=== PATIENT | female | born 1960 | race Caucasian/White ===

== ENCOUNTER 2020-06-09 14:36 | Emergency (ER) | payer OTHER ==
[~2020-06-09] VITALS: Ht 152.4 cm; Wt 71.2 kg
[2020-06-09 14:49] VITALS: BP 134/65
--- NOTE | 2020-06-09 15:25 | NUR ---
US TECH AT BEDSIDE
--- NOTE | 2020-06-09 17:01 | NUR ---
Patient discharged to home in stable condition. Written and verbal after care instructions given. Patient verbalizes understanding of instruction.
== END 2020-06-09 17:02 | disposition home or self-care (01) ==
LOC: ER 14:46
DX: R60.0 Localized edema (principal); F41.9 Anxiety disorder, unspecified; E78.5 Hyperlipidemia, unspecified; Z90.89 Acquired absence of other organs
CPT/HCPCS: 93971-TC

== ENCOUNTER 2020-08-09 12:29 | Emergency (ER) | payer OTHER ==
[~2020-08-09] VITALS: Ht 152.4 cm; Wt 68.5 kg
[2020-08-09 12:50] VITALS: BP 146/89
--- NOTE | 2020-08-09 15:56 | NUR ---
Patient discharged to home in stable condition. Written and verbal after care instructions given. Patient verbalizes understanding of instruction.
--- NOTE | 2020-08-10 22:41 | NUR ---
LAB CALLED REGARDING POSITIVE COVID RESULT
== END 2020-08-09 15:56 | disposition home or self-care (01) ==
LOC: ER 12:34
DX: U07.1 COVID-19 (principal); J12.89 Other viral pneumonia; Z88.6 Allergy status to analgesic agent
CPT/HCPCS: 71045; 99284; C9803; U0003

== ENCOUNTER 2022-10-21 13:45 | Emergency (ER) | payer OTHER ==
[~2022-10-21] VITALS: Ht 152.4 cm; Wt 73.5 kg
[2022-10-21] MEDS ORDERED: IV NS 0.9% 1,000 ML BAG IV ONE (14:00)
--- NOTE | 2022-10-21 14:00 | NUR ---
BIBFAMILY C/O LIGHT HEADEDNESS X 2 WEEKS, RL=133/70 30 MINUTES AGO. AMBULATORY, PLACED IN BED, AAOX4, BREATHING EVEN SATURATING AT 98%RA
--- NOTE | 2022-10-21 14:08 | NUR ---
BLOOD DRAWN AND SWAB FOR COVID19 SENT TO LAB
--- NOTE | 2022-10-21 14:24 | NUR ---
AT BEDSIDE FOR EVAL.
[2022-10-21 14:32] LABS: BASOPHILS % (AUTO) 0.7 % (0.0-2.0); EOSINOPHILS % (AUTO) 1.6 % (0.0-6.0); HEMATOCRIT 39 % (33-45); HEMOGLOBIN 12.7 g/dL (11.5-14.8); MEAN CORPUSCULAR HGB CONC 33 g/dl (31.0-36.0); MEAN CORPUSCULAR VOLUME 93 fL (82-100); MONOCYTES # (AUTO) 0.5 K/uL (0.1-1.30); MONOCYTES % (AUTO) 7.7 % (2.0-12.0); NEUTROPHILS # (AUTO) 3.6 K/uL (1.8-8.9); PLATELET COUNT (AUTO) 261 K/uL (150-450); RED BLOOD CELL COUNT(AUTO) 4.18 MIL/uL (4.0-5.2); WHITE BLOOD COUNT (AUTO) 6.2 K/uL (4.3-11.0)
--- NOTE | 2022-10-21 14:40 | NUR ---
PATIENT TAKEN TO CT VIA DEXTER
[2022-10-21 16:23] LABS: ALANINE AMINOTRANSFERASE 123 U/L (12-78); ALBUMIN 4.1 g/dL (3.4-5.0); ALKALINE PHOSPHATASE 178 U/L (46-116); ASPARTATE AMINOTRANSFERASE 47 U/L (15-37); BILIRUBIN,DIRECT 0.1 mg/dL (0.0-0.2); BILIRUBIN,TOTAL 0.4 mg/dL (0.2-1.0); CARBON DIOXIDE 28 mmol/L (21-32); CHLORIDE 105 mmol/L (98-107); CREATININE 0.7 mg/dL (0.6-1.3); GLUCOSE 114 mg/dL (74-106); POTASSIUM 4.3 mmol/L (3.5-5.1); SODIUM SERUM 139 mmol/L (136-145); TOTAL PROTEIN, SERUM 8.5 g/dL (6.4-8.2); UREA NITROGEN, BLOOD 18 mg/dL (7-18)
[2022-10-21] MEDS ORDERED: IBUP-1957 PO (17:16)
--- NOTE | 2022-10-21 17:30 | NUR ---
IV removed. Catheter intact and site benign. Pressure and 4x4 applied to site. No bleeding noted.Patient discharged to home in stable condition. Written and verbal after care instructions given. Patient verbalizes understanding of instruction.
[2022-10-21 18:17] VITALS: BP 135/70
== END 2022-10-21 17:30 | disposition home or self-care (01) ==
LOC: ER 13:52
DX: I10 Essential (primary) hypertension (principal); F41.9 Anxiety disorder, unspecified; R51.9 Headache, unspecified; Z79.899 Other long term (current) drug therapy; Z88.6 Allergy status to analgesic agent
CPT/HCPCS: 99285; 96360; 70450; 87426; 93005; 85025; 80048; 80076; 36415; 84484; 82962; J7030; C9803

== ENCOUNTER 2023-05-18 17:35 | Emergency (ER) | payer MEDICAID, OTHER ==
[~2023-05-18] VITALS: Ht 152.4 cm; Wt 49.9 kg
[~2023-05-18 17:35] MED LIST: IBUP-1957 PO
[2023-05-18] MEDS ORDERED: ALPRAZOLAM 0.5 MG TABLET PO ONE (20:00)
[2023-05-18] MEDS ORDERED: ALPRAZOLAM 0.5 MG TABLET ONE (20:09)
[2023-05-18] MEDS ORDERED: ALPR0.5T PO (20:48)
[2023-05-18 21:04] VITALS: BP 164/86; TEMP 98.7; O2SAT 100
== END 2023-05-18 21:04 | disposition home or self-care (01) ==
LOC: ER 17:51
DX: F41.9 Anxiety disorder, unspecified (principal); Z88.6 Allergy status to analgesic agent

== ENCOUNTER 2023-05-19 12:53 | Emergency (ER) | payer OTHER ==
[~2023-05-19] VITALS: Ht 152.4 cm; Wt 63.5 kg
[~2023-05-19 12:53] MED LIST changes: +ALPR0.5T PO
[2023-05-19 12:59] VITALS: BP 143/98; TEMP 98.4; O2SAT 100
[2023-05-19] MEDS ORDERED: ALPRAZOLAM 0.5 MG TABLET ONE (13:12)
[2023-05-19] MEDS ORDERED: ALPRAZOLAM 0.5 MG TABLET PO ONE (13:30)
== END 2023-05-19 13:16 | disposition home or self-care (01) ==
LOC: ER 12:56
DX: F41.9 Anxiety disorder, unspecified (principal); E78.00 Pure hypercholesterolemia, unspecified; Z88.6 Allergy status to analgesic agent

== ENCOUNTER 2023-05-29 12:32 | Emergency (ER) | payer OTHER ==
[~2023-05-29] VITALS: Ht 152.4 cm; Wt 67.1 kg
[2023-05-29 13:29] LABS: BASOPHILS # (AUTO) 0.1 K/uL (0.0-0.2); BASOPHILS % (AUTO) 0.7 % (0.0-2.0); EOSINOPHILS # (AUTO) 0.1 K/uL (0.0-0.7); HEMATOCRIT 38 % (33-45); HEMOGLOBIN 12.6 g/dL (11.5-14.8); LYMPHOCYTES # (AUTO) 1.4 K/uL (0.8-4.8); LYMPHOCYTES % (AUTO) 14.8 % (20.0-44.0); MEAN CORPUSCULAR HEMOGLOBIN 31 PG (26.0-33.0); MEAN CORPUSCULAR HGB CONC 33 g/dl (31.0-36.0); MEAN CORPUSCULAR VOLUME 92 fL (82-100); MONOCYTES # (AUTO) 0.7 K/uL (0.1-1.30); MONOCYTES % (AUTO) 7.5 % (2.0-12.0); NEUTROPHILS # (AUTO) 7.3 K/uL (1.8-8.9); PLATELET COUNT (AUTO) 224 K/uL (150-450); RED BLOOD CELL COUNT(AUTO) 4.12 MIL/uL (4.0-5.2); RED CELL DISTRIBUTION WIDTH 13.4 % (11.5-15.0); WHITE BLOOD COUNT (AUTO) 9.6 K/uL (4.3-11.0)
[2023-05-29 13:50] LABS: CALCIUM, SERUM 9.1 mg/dL (8.5-10.1); CREATININE 0.9 mg/dL (0.6-1.3)
[2023-05-29 13:53] LABS: ALBUMIN 3.6 g/dL (3.4-5.0); BILIRUBIN,DIRECT 0.1 mg/dL (0.0-0.2); BILIRUBIN,TOTAL 0.3 mg/dL (0.2-1.0); TOTAL PROTEIN, SERUM 7.5 g/dL (6.4-8.2)
[2023-05-29 14:08] LABS: APPEARANCE,URINE CLEAR (CLEAR); BILIRUBIN,URINE NEGATIVE (NEGATIVE); BLOOD, URINE 2+ Ery/uL (NEGATIVE); COLOR,URINE YELLOW (YELLOW); KETONES,URINE NEGATIVE (NEGATIVE); LEUKOCYTE ESTERASE ,URINE TRACE (NEGATIVE); NITRITE, URINE NEGATIVE (NEGATIVE); PH,URINE 6.5 (5.0-8.0); PROTEIN,URINE NEGATIVE (NEGATIVE); UGLUCOSE NEGATIVE (NEGATIVE); UROBILINOGEN,URINE 0.2 EU/dL (0.2)
[2023-05-29 14:25] LABS: ADD URINE CULTURE NO; BACTERIA,URINE Few /HPF (None Seen); CALCIUM OXALATE CRYSTALS,UR Few /HPF (None Seen)
[2023-05-29] MEDS ORDERED: IV NS 0.9% 1,000 ML IV ONE (14:30)
[2023-05-29] MEDS ORDERED: IBUPROFEN 600 MG TABLET PO ONE (14:30)
[2023-05-29] MEDS ORDERED: IBUPROFEN 600 MG TABLET ONE (15:06)
[2023-05-29] MEDS ORDERED: TAMS-12 PO (15:14)
[2023-05-29] MEDS ORDERED: IBUP-1953 PO (15:14)
[2023-05-29] MEDS ORDERED: CEPH500T PO (15:14)
[2023-05-29 15:58] VITALS: BP 116/70; TEMP 97.4; O2SAT 98
== END 2023-05-29 15:56 | disposition home or self-care (01) ==
LOC: ER 12:35
DX: N39.0 Urinary tract infection, site not specified (principal); N20.0 Calculus of kidney; I10 Essential (primary) hypertension; F41.9 Anxiety disorder, unspecified; E78.00 Pure hypercholesterolemia, unspecified; Z79.899 Other long term (current) drug therapy; Z88.1 Allergy status to other antibiotic agents
CPT/HCPCS: 99284; 74176; 96360; 85025; 80048; 83690; 80076; 81001; 36415; J7030

== ENCOUNTER 2023-09-19 18:50 | Emergency (ER) | payer OTHER ==
[~2023-09-19] VITALS: Ht 152.4 cm; Wt 70.3 kg
[~2023-09-19 18:50] MED LIST changes: +CEPH500T PO; +IBUP-1953 PO; +TAMS-12 PO
[2023-09-19 19:01] VITALS: TEMP 98.4
[2023-09-19 21:26] LABS: APPEARANCE,URINE CLEAR (CLEAR); BILIRUBIN,URINE NEGATIVE (NEGATIVE); BLOOD, URINE 3+ Ery/uL (NEGATIVE); COLOR,URINE YELLOW (YELLOW); KETONES,URINE NEGATIVE (NEGATIVE); LEUKOCYTE ESTERASE ,URINE 1+ (NEGATIVE); NITRITE, URINE NEGATIVE (NEGATIVE); PROTEIN,URINE NEGATIVE (NEGATIVE); UGLUCOSE NEGATIVE (NEGATIVE); UROBILINOGEN,URINE 0.2 EU/dL (0.2)
[2023-09-19 21:47] LABS: ADD URINE CULTURE YES; BACTERIA,URINE Few /HPF (None Seen); RBC,URINE 21-50 /HPF (0-2); SQUAMOUS EPITHELIAL CELL,UR Few /HPF (None Seen)
[2023-09-19] MEDS ORDERED: CEPH500C2 PO (22:13)
[2023-09-19] MEDS ORDERED: CEPHALEXIN MONOHYDRATE 500 MG CAPSULE PO ONE (22:15)
[2023-09-19] MEDS ORDERED: IBUPROFEN 200 MG TABLET ONE (22:16)
[2023-09-19] MEDS: CEPHALEXIN MONOHYDRATE 500 MG CAPSULE PO ONE (22:17)
[2023-09-19] MEDS: IBUPROFEN 600 MG TABLET PO ONE (22:17)
[2023-09-19 22:56] VITALS: BP 135/89; O2SAT 98
== END 2023-09-19 22:55 | disposition home or self-care (01) ==
LOC: ER 18:57
DX: N39.0 Urinary tract infection, site not specified (principal); I10 Essential (primary) hypertension; F41.9 Anxiety disorder, unspecified; E78.00 Pure hypercholesterolemia, unspecified; Z79.899 Other long term (current) drug therapy; Z88.1 Allergy status to other antibiotic agents
CPT/HCPCS: 81001; 87086-TC